=== PATIENT | male | born 1960 | race African-American/Black ===

== ENCOUNTER 2016-05-23 19:33 | Inpatient (IN) | payer OTHER ==
[~2016-05-23] VITALS: Ht 185.4 cm; Wt 66.0 kg
[2016-05-23 19:35] VITALS: BP 113/73; PULSE 95; RESP 15; TEMP 99.1; O2SAT 97
--- NOTE | 2016-05-23 19:58 | PD ---
Physical Exam Date Seen by Provider: May 23, 2016 Time Seen by Provider: 19:55 Narrative 55 year old male presents to the emergency department for evaluation of dry cough, left sided pain, subjective fevers for 1 week. He reports shortness of breath and left sided pain worse when laying down. Patient awaiting bed placement. Data Data Last Documented VS Vital Signs Date Time Temp Pulse Resp B/P Pulse Ox O2 Delivery O2 Flow Rate FiO2 05/23/16 19:35 99.1 95 15 113/73 97 Room Air [facility] Supervised Visit with PERLA: Elicia Rhodes May 23, 2016 19:58
--- NOTE | 2016-05-23 21:09 | PD ---
HPI Chief Complaint: Respiratory Symptoms Time Seen by Provider: 20:57 Travel History International Travel<30 days: No Contact w/Intl Traveler<30days: No Traveled to known affect area: No History of Present Illness HPI 55-year-old male here for evaluation of cough, left neck pain, left chest pain, and shortness of breath. Symptoms going on for last week. Patient works in [employer]. He denies trauma. Cough is productive of greenish sputum. No hemoptysis. He has had subjective intermittent fevers and chills. Symptoms seem to be worse at night. No paresthesias or motor deficits. No known history of cardiac disease. No history of DVT or PE. PFSH Social History Tobacco Use: Yes Allergies-Medications (Allergen,Severity, Reaction): Coded Allergies: No Known Allergies (Unverified , 05/23/16) Reported Meds & Prescriptions Reported Meds & Active Scripts Active No Active Prescriptions or Reported Medications Review of Systems Except as stated in HPI: all other systems reviewed are Neg Physical Exam Narrative GENERAL: Well-developed, well-nourished, comfortable, no acute distress. SKIN: Focused skin assessment warm/dry. HEAD: Atraumatic. Normocephalic. EYES: Pupils equal and round. No scleral icterus. No injection or drainage. ENT: Mucous membranes pink and moist. NECK: Trachea midline. No JVD. Left lateral neck tenderness without mass. No midline vertebral step-off or tenderness. CARDIOVASCULAR: Regular rate and rhythm. Distal pulses brisk and equal bilaterally. RESPIRATORY: No accessory muscle use. Clear to auscultation. Breath sounds equal bilaterally. GASTROINTESTINAL: Abdomen soft, non-tender, nondistended. MUSCULOSKELETAL: No obvious deformities. No clubbing. No cyanosis. No edema. Left anterior and lateral chest wall tenderness without step-off, without crepitus, without paradoxical chest wall movement. Normal range of motion in all joints and extremities. NEUROLOGICAL: Awake and alert. No obvious cranial nerve deficits. Motor grossly within normal limits. Normal speech. PSYCHIATRIC: Appropriate mood and affect; insight and judgment normal. Data Data Last Documented VS Vital Signs Date Time Temp Pulse Resp B/P Pulse Ox O2 Delivery O2 Flow Rate FiO2 05/23/16 21:58 89 18 119/71 95 Room Air 05/23/16 19:35 99.1 Orders Complete Blood Count With Diff (05/23/16 21:01) Comprehensive Metabolic Panel (05/23/16 21:01) Act Partial Throm Time (Ptt) (05/23/16 21:) Prothrombin Time / Inr (Pt) (05/23/16 21:) Ckmb (Isoenzyme) Profile (05/23/16 21:) Troponin I (05/23/16 21:01) Iv Access Insert/Monitor (05/23/16 21:) Electrocardiogram (05/23/16 21:) Ecg Monitoring (05/23/16 21:) Oximetry (05/23/16 21:) Oxygen Administration (05/23/16 21:) Chest, Single Ap (05/23/16 21:) Ct Pulmonary Angiogram (05/23/16 21:) Sodium Chloride 0.9% Flush (Ns Flush) (05/23/16 21:15) Methylprednisolone So Succ Inj (Solumedr (05/23/16 21:15) Albuterol-Ipratropium Neb (Duoneb Neb) (05/23/16 21:15) Ct Cerv Spine W/O Contrast (05/23/16 ) CKMB (05/23/16 21:20) CKMB% (05/23/16 21:20) Iohexol 350 Inj (Omnipaque 350 Inj) (05/23/16 22:41) Cefepime Inj (Maxipime Inj) (05/23/16 23:30) Azithromycin Inj (Zithromax Inj) (05/23/16 23:30) Enoxaparin Inj (Lovenox Inj) (05/23/16 23:30) Blood Culture (05/23/16 23:23) Admit Order (Ed Use Only) (05/23/16 23:37) Ceftriaxone Inj (Rocephin Inj) (05/24/16 23:00) Labs Laboratory Tests Test 05/23/16 21:20 White Blood Count 9.9 TH/MM3 Red Blood Count 4.34 MIL/MM3 Hemoglobin 11.9 GM/DL Hematocrit 36.6 % Mean Corpuscular Volume 84.2 FL Mean Corpuscular Hemoglobin 27.5 PG Mean Corpuscular Hemoglobin 32.7 % Concent Red Cell Distribution Width 12.7 % Platelet Count 144 TH/MM3 Mean Platelet Volume 10.6 FL Neutrophils (%) (Auto) 66.6 % Lymphocytes (%) (Auto) 17.1 % Monocytes (%) (Auto) 15.9 % Eosinophils (%) (Auto) 0.2 % Basophils (%) (Auto) 0.2 % Neutrophils # (Auto) 6.6 TH/MM3 Lymphocytes # (Auto) 1.7 TH/MM3 Monocytes # (Auto) 1.6 TH/MM3 Eosinophils # (Auto) 0.0 TH/MM3 Basophils # (Auto) 0.0 TH/MM3 CBC Comment DIFF FINAL Differential Comment Prothrombin Time 10.7 SEC Prothromb Time International 1.0 RATIO Ratio Activated Partial 38.4 SEC Thromboplast Time Sodium Level 137 MEQ/L Potassium Level 4.0 MEQ/L Chloride Level 99 MEQ/L Carbon Dioxide Level 29.3 MEQ/L Anion Gap 9 MEQ/L Blood Urea Nitrogen 11 MG/DL Creatinine 1.01 MG/DL Estimat Glomerular Filtration 94 ML/MIN Rate Random Glucose 81 MG/DL Calcium Level 8.5 MG/DL Total Bilirubin 1.1 MG/DL Aspartate Amino Transf 16 U/L (AST/SGOT) Alanine Aminotransferase 16 U/L (ALT/SGPT) Alkaline Phosphatase 64 U/L Total Creatine Kinase 124 U/L Creatine Kinase MB LESS THAN 0.5 NG/ML Troponin I LESS THAN 0.02 NG/ML Total Protein 7.4 GM/DL Albumin 2.8 GM/DL MDM Medical Decision Making Medical Screen Exam Complete: Yes Emergency Medical Condition: Yes Interpretation(s) EKG: Sinus, rate 76, normal axis, normal intervals, no acute ischemic abnormality. Differential Diagnosis ACS, pneumothorax, pericarditis, PE, pneumonia, musculoskeletal pain, bronchitis , torticollis, cervical abnormality Narrative Course Initial vital signs show heart rate 95, blood pressure 113/73, pulse ox 97% on room air, oral temp of 99.1F. CBC shows WBC 9.9, hemoglobin 11.9, hematocrit 36.6, platelets 144, CMP is unremarkable. Cardiac enzymes are negative. Chest x-ray: CONCLUSION: Increased density at the bases bilaterally representing either atelectasis or consolidation. CT cervical spine: CONCLUSION: Small area of fragmentation at the posterior right C7 spinous process which is likely chronic given it appears well-corticated. No acute bony injury is seen. CT pulmonary angiogram: LUNGS: There is patchy consolidation throughout the lower lobes bilaterally and to a lesser degree the lateral right upper lobe, the posterior lateral right middle lobe and the posterior left lingula. PLEURAE: There is no pleural thickening or pleural effusion. MEDIASTINUM: There are mildly prominent lymph nodes in the AP window region, subcarinal region, and hilar regions. There is calcification at the right hilum. MUSCULOSKELETAL: Within normal limits for patient age. MISCELLANEOUS: The visualized upper abdominal organs demonstrate no acute abnormality. CONCLUSION: 1. Possible small distal emboli seen in the pulmonary artery supplying the lower lobes bilaterally. 2. Priors of consolidation throughout the lungs being most prominent in the lower lobes. Diffuse processes such as infection need to be considered. Some degree of infarction cannot be excluded. Patient was made aware of all findings. Blood cultures obtained. He was started on antibiotics to cover for pneumonia. He was also started on Lovenox. He'll be admitted for further treatment and evaluation of pulmonary embolism, pneumonia, possible pulmonary infarction. Case discussed with hospitalist Dr. Beebe who will admit the patient to her service. Diagnosis Primary Impression: Pulmonary embolism Qualified Code: I26.99 - Other pulmonary embolism without acute cor pulmonale , unspecified chronicity Additional Impression: Pneumonia Qualified Code: J18.9 - Pneumonia of both lower lobes due to infectious organism Admitting Information Admitting Physician Requests: Admit Scripts No Active Prescriptions or Reported Meds Obed Ch MD May 23, 2016 21:09
[2016-05-23] MEDS ORDERED: methylPREDNISolone SOD SUCC 125 MG/2 ML VIAL IVP ONE (21:15)
[2016-05-23] MEDS ORDERED: SODIUM CHLORIDE 0.9% FLUSH 10 ML FLUSH IVF PRN (21:15)
[2016-05-23] MEDS: RESP: ALBUTEROL 2.5 MG/IPRATROPIUM 0.5 MG NEB (SCH) INH ×2 (21:24→21:25)
[2016-05-23 21:51] LABS: AUTOMATED NEUTROPHIL # 6.6 TH/MM3 (1.8-7.7); BASOPHIL % 0.2 % (0.0-2.0); EOSINOPHIL % 0.2 % (0.0-4.0); HEMATOCRIT 36.6 % (39.0-51.0); HEMO FLAGS DIFF FINAL; LYMPH % 17.1 % (9.0-44.0); LYMPHOCYTE # 1.7 TH/MM3 (1.0-4.8); MEAN CELL VOLUME 84.2 FL (80.0-100.0); MEAN CORPUSCULAR HEMOGLOBIN 27.5 PG (27.0-34.0); MEAN CORPUSCULAR HGB CONC 32.7 % (32.0-36.0); MONO % 15.9 % (0.0-8.0); NEUT % 66.6 % (16.0-70.0); PLATELET COUNT 144 TH/MM3 (150-450); RED BLOOD COUNT 4.34 MIL/MM3 (4.50-5.90); RED CELL DISTRIBUTION WIDTH 12.7 % (11.6-17.2); WHITE BLOOD COUNT 9.9 TH/MM3 (4.0-11.0)
[2016-05-23 21:58] VITALS: BP 119/71; PULSE 89; RESP 18; O2SAT 95
[2016-05-23 22:05] LABS: APTT (PATIENT) 38.4 SEC (24.3-30.1); PROTHROMBIN TIME - PATIENT 10.7 SEC (9.8-11.6)
[2016-05-23 22:08] LABS: ANION GAP 9 MEQ/L (5-15); AST (GOT) 16 U/L (15-37); BICARBONATE 29.3 MEQ/L (21.0-32.0); BLOOD UREA NITROGEN 11 MG/DL (7-18); CHLORIDE 99 MEQ/L (98-107); GLOMERULAR FILTRATION RATE 94 ML/MIN (>89); SODIUM (NA) 137 MEQ/L (136-145)
[2016-05-23 22:13] LABS: ALKALINE PHOSPHATASE 64 U/L (45-117); ALT (GPT) 16 U/L (12-78); CREATINE KINASE 124 U/L (39-308); TOTAL BILIRUBIN ADULT 1.1 MG/DL (0.2-1.0)
--- NOTE | 2016-05-23 22:18 | RADRPT ---
EXAM DATE/TIME: 05/23/2016 21:01 [facility] COMPARISON: No previous studies available for comparison. INDICATIONS : Chest pain for 1 day. MEDICAL HISTORY : None. SURGICAL HISTORY : None. ENCOUNTER: Initial ACUITY: 2 days PAIN SCORE: 8/10 LOCATION: Left upper chest FINDINGS: The heart size is normal. There is increased density identified at the lung bases bilaterally. The m id and upper lungs are relatively clear. A significant effusion is not clearly seen. The bony struc tures are grossly intact. CONCLUSION: Increased density at the bases bilaterally representing either atelectasis or consoli dation. Lucian Naidu MD on May 23, 2016 at 22:05 Board Certified Radiologist. This report was verified electronically.
[2016-05-23 22:25] LABS: CKMB LESS THAN 0.5 NG/ML (0.5-3.6)
[2016-05-23] MEDS ORDERED: IOHEXOL 350 MG/ML 10 ML VIAL (for RAD DIAG) IV ONE (22:41)
--- NOTE | 2016-05-23 23:05 | RADRPT ---
EXAM DATE/TIME: 05/23/2016 22:26 [facility] COMPARISON: No previous studies available for comparison. INDICATIONS : Left neck pain. RADIATION DOSE: 21.56 CTDIvol (mGy) MEDICAL HISTORY : None SURGICAL HISTORY : None. ENCOUNTER: Initial ACUITY: 1 day PAIN SCALE: 6/10 LOCATION: Left neck TECHNIQUE: Volumetric scanning of the cervical spine was performed. Multiplanar reconstructions in the sagittal, coronal and oblique axial planes were performed. Using automated exposure control and adjustment o f the mA and/or kV according to patient size, radiation dose was kept as low as reasonably achievable to obtain optimal diagnostic quality images. FINDINGS: VERTEBRAE: Normal vertebral body height. There is minimal fragmentation of the posterior right C7 spinous proces s. The bony fragment appears well-corticated suggesting this is likely chronic. ALIGNMENT: No evidence of subluxation. C2-C3: The bony spinal canal is normal in size. No evidence of disc bulge or herniation. The neural forami na are bilaterally patent. C3-C4: The bony spinal canal is normal in size. No evidence of disc bulge or herniation. The neural forami na are bilaterally patent. C4-C5: The bony spinal canal is normal in size. No evidence of disc bulge or herniation. The neural forami na are bilaterally patent. C5-C6: The bony spinal canal is normal in size. No evidence of disc bulge or herniation. The neural forami na are bilaterally patent. C6-C7: The bony spinal canal is normal in size. No evidence of disc bulge or herniation. The neural forami na are bilaterally patent. C7-T1: The bony spinal canal is normal in size. No evidence of disc bulge or herniation. The neural forami na are bilaterally patent. CONCLUSION: Small area of fragmentation at the posterior right C7 spinous process which is likely chronic given i t appears well-corticated. No acute bony injury is seen. Lucian Naidu MD on May 23, 2016 at 23:01 Board Certified Radiologist. This report was verified electronically.
--- NOTE | 2016-05-23 23:19 | RADRPT ---
EXAM DATE/TIME: 05/23/2016 22:31 [facility] COMPARISON: No previous studies available for comparison. INDICATIONS : Left chest pain. IV CONTRAST: 70 cc Omnipaque 350 (iohexol) IV RADIATION DOSE: 8.14 CTDIvol (mGy) MEDICAL HISTORY : None SURGICAL HISTORY : None. ENCOUNTER: Initial ACUITY: 1 day PAIN SCALE: 7/10 LOCATION: Left chest TECHNIQUE: Volumetric scanning of the chest was performed using a pulmonary embolism protocol MIP images were re constructed. Using automated exposure control and adjustment of the mA and/or kV according to patien t size, radiation dose was kept as low as reasonably achievable to obtain optimal diagnostic quality images. FINDINGS: PULMONARY ARTERIES: No filling defects are seen in the central pulmonary arteries. There are a few small areas of low den sity seen in the pulmonary artery supplying the lower lobe being more on the right than the left. Sma ll distal pulmonary emboli need to be considered. LUNGS: There is patchy consolidation throughout the lower lobes bilaterally and to a lesser degree the later al right upper lobe, the posterior lateral right middle lobe and the posterior left lingula. PLEURAE: There is no pleural thickening or pleural effusion. MEDIASTINUM: There are mildly prominent lymph nodes in the AP window region, subcarinal region, and hilar regions. There is calcification at the right hilum. MUSCULOSKELETAL: Within normal limits for patient age. MISCELLANEOUS: The visualized upper abdominal organs demonstrate no acute abnormality. CONCLUSION: 1. Possible small distal emboli seen in the pulmonary artery supplying the lower lobes bilaterally. 2. Priors of consolidation throughout the lungs being most prominent in the lower lobes. Diffuse proc esses such as infection need to be considered. Some degree of infarction cannot be excluded. Lucian Naidu MD on May 23, 2016 at 23:04 Board Certified Radiologist. This report was verified electronically.
[2016-05-23] MEDS ORDERED: AZITHROMYCIN INJ 500 MG in SODIUM CHLOR 0.9% 250 ML INJ 250 ML IV ONE (23:30)
[2016-05-23] MEDS ORDERED: ENOXAPARIN SODIUM 80 MG/0.8 ML SYRINGE SQ ONE (23:30)
[2016-05-23] MEDS ORDERED: CEFEPIME INJ 1,000 MG in SODIUM CHLORIDE 0.9% INJ 100 ML IV ONE (23:30)
--- NOTE | 2016-05-23 23:41 | HHI.HP ---
[facility] Primary Care Physician No Primary Care Physician Admission Diagnosis pulmonary embolism, bilateral pneumonia versus pulmonary infarcts Diagnoses: (1) PE (pulmonary thromboembolism) Diagnosis: Principal (2) PNA (pneumonia) Diagnosis: Principal (3) Thrombocytopenia Diagnosis: Principal (4) Tobacco abuse Diagnosis: Principal Travel History International Travel<30 Days: No Contact w/Intl Traveler <30 Da: No Traveled to Known Affected Are: No History of Present Illness This is a 55-year-old male with no significant PMH who presented to the ER with complaints of cough, SOB and neck pain x1 wk. States symptoms have gotten progressively worse, now reports productive cough w/ green colored sputum and febrile episodes. On arrival, BP 113/73, HR 95, O2 sat 97% on RA, Temp 99.1. WBC 9.9. Platelets 144, no previous labs for comparison. Chemistry essentially unremarkable. Troponin 0.02. INR 1.0. CXR with increased density at bases bilaterally. CT C-spine no acute findings. CTA Pulm with possible small distal emboli and pulmonary artery bilateral lobes, consolidation bilateral bases. S/p Cefepime/Zithro and Lovenox in ER. No reported h/o PE in the past, no recent travel or surgical intervention. Review of Systems Except as stated in HPI: all other systems reviewed are Neg ROS: 14 point review of systems otherwise negative. Past Family Social History Past Medical History PMH: None Past Surgical History PAST SURGICAL HISTORY: None Allergies: Coded Allergies: No Known Allergies (Unverified , 05/23/16) Family History PAST FAMILY HISTORY: Reviewed. No h/o DM or CAD Social History PAST SOCIAL HISTORY: Negative for alcohol or drugs. Smokes 1ppd. Physical Exam Vital Signs Vital Signs Date Time Temp Pulse Resp B/P Pulse Ox O2 Delivery O2 Flow Rate FiO2 05/23/16 21:58 89 18 119/71 95 Room Air 05/23/16 21:25 98 Aerosol Mask 05/23/16 19:35 99.1 95 15 113/73 97 Room Air Physical Exam PE: GENERAL: Middle-aged male in no acute distress. HEENT: PERRLA, EOMI. No scleral icterus or conjunctival pallor. No lid lag or facial droop. CARDIOVASCULAR: Regular rate and rhythm. No obvious murmurs to auscultation. No chest tenderness to palpation. RESPIRATORY: No obvious rhonchi, occasional wheezing. Clear to auscultation. Breath sounds equal bilaterally. GASTROINTESTINAL: Abdomen soft, non-tender, nondistended. BS normal. MUSCULOSKELETAL: Extremities without clubbing, cyanosis, or edema. No obvious deformities. NEUROLOGICAL: Awake, alert and oriented x4. No focal neurologic deficits. Moving both upper and lower extremities spontaneously. Laboratory Laboratory Tests Test 05/23/16 21:20 White Blood Count 9.9 Red Blood Count 4.34 Hemoglobin 11.9 Hematocrit 36.6 Mean Corpuscular Volume 84.2 Mean Corpuscular Hemoglobin 27.5 Mean Corpuscular Hemoglobin 32.7 Concent Red Cell Distribution Width 12.7 Platelet Count 144 Mean Platelet Volume 10.6 Neutrophils (%) (Auto) 66.6 Lymphocytes (%) (Auto) 17.1 Monocytes (%) (Auto) 15.9 Eosinophils (%) (Auto) 0.2 Basophils (%) (Auto) 0.2 Neutrophils # (Auto) 6.6 Lymphocytes # (Auto) 1.7 Monocytes # (Auto) 1.6 Eosinophils # (Auto) 0.0 Basophils # (Auto) 0.0 CBC Comment DIFF FINAL Differential Comment Prothrombin Time 10.7 Prothromb Time International 1.0 Ratio Activated Partial 38.4 Thromboplast Time Sodium Level 137 Potassium Level 4.0 Chloride Level 99 Carbon Dioxide Level 29.3 Anion Gap 9 Blood Urea Nitrogen 11 Creatinine 1.01 Estimat Glomerular Filtration 94 Rate Random Glucose 81 Calcium Level 8.5 Total Bilirubin 1.1 Aspartate Amino Transf 16 (AST/SGOT) Alanine Aminotransferase 16 (ALT/SGPT) Alkaline Phosphatase 64 Total Creatine Kinase 124 Creatine Kinase MB LESS THAN 0.5 Troponin I LESS THAN 0.02 Total Protein 7.4 Albumin 2.8 Result Diagram: 05/23/16211905/23/162119 Assessment and Plan Problem List: (1) PE (pulmonary thromboembolism) ICD Code: I26.99 Status: Acute (2) PNA (pneumonia) ICD Code: J18.9 Status: Acute (3) Thrombocytopenia ICD Code: D69.6 Status: Acute (4) Tobacco abuse ICD Code: Z72.0 Status: Acute Assessment and Plan A/P: 1. PE: worsening SOB/cough x1 wk, CTA w/ possible small distal emboli and pulmonary artery supplying lower lobes, images reviewed by me. No h/o PE, no recent travel/no surgical intervention, s/p Lovenox in ER, will continue w/ Lovenox q12h. Symbicort/DuoNeb for possible bronchospasm from PE. 2. PNA: CXR/CTA Pulm w/ bilateral basilar consolidation, images reviewed by me , +productive cough, continue w/ IV Abx, DuoNeb prn as needed. Mucinex 3. Thrombocytopenia: Platelets 144, no previous labs for comparison. No active bleeding, monitor closely in light of starting Lovenox. Repeat labs in am. 4. Tobacco Abuse: Pt counselled. Ativan/NicoDerm prn if needed. 5. DVT Prophylaxis: SCD/Teds. 6. Social work for d/c planning as needed. 7. Case discussed w/ ER physician at length. Physician Certification 2 Midnight Certification Type: Admission for Inpatient Services Order for Inpatient Services The services are ordered in accordance with Medicare regulations or non- Medicare payer requirements, as applicable. In the case of services not specified as inpatient-only, they are appropriately provided as inpatient services in accordance with the 2-midnight benchmark. Estimated LOS (days): 2 days is the estimated time the patient will need to remain in the hospital, assuming treatment plan goals are met and no additional complications. Post-Hospital Plan: Not yet determined Linda Beebe MD May 23, 2016 23:40
[2016-05-23] MEDS ORDERED: SODIUM CHLORIDE 0.9% FLUSH 10 ML FLUSH IV FLUSH PRN (23:45)
[2016-05-23] MEDS ORDERED: ONDANSETRON HCL 4 MG/2 ML VIAL IVP PRN (23:45)
[2016-05-23] MEDS ORDERED: RESP: ALBUTEROL 2.5 MG/IPRATROPIUM 0.5 MG NEB (PRN) NEB (23:45)
[2016-05-23] MEDS ORDERED: ACETAMINOPHEN 325 MG TAB PO PRN (23:45)
[2016-05-23] MEDS ORDERED: BISACODYL 10 MG SUPP RECTAL PRN (23:45)
[2016-05-23] MEDS ORDERED: ACETAMINOPHEN/HYDROcodone 325 MG/5 MG TAB PO PRN (23:45)
[2016-05-23] MEDS ORDERED: MORPHINE SULFATE 4 MG/ML INJ IV PRN (23:45)
[2016-05-24] VITALS (9 sets, daily range): BP systolic 112–133; BP diastolic 55–77; PULSE 55–86; RESP 18–20; TEMP 97.5–98.7; O2SAT 96–98
[2016-05-24 08:17] LABS: AUTOMATED NEUTROPHIL # 5.2 TH/MM3 (1.8-7.7); BASOPHIL % 0.2 % (0.0-2.0); HEMATOCRIT 35.4 % (39.0-51.0); LYMPHOCYTE # 0.5 TH/MM3 (1.0-4.8); MEAN CELL VOLUME 84.3 FL (80.0-100.0); MEAN CORPUSCULAR HEMOGLOBIN 27.9 PG (27.0-34.0); MEAN CORPUSCULAR HGB CONC 33.1 % (32.0-36.0); MONO % 5.4 % (0.0-8.0); NEUT % 85.4 % (16.0-70.0); PLATELET COUNT 156 TH/MM3 (150-450); RED BLOOD COUNT 4.19 MIL/MM3 (4.50-5.90); RED CELL DISTRIBUTION WIDTH 12.9 % (11.6-17.2); WHITE BLOOD COUNT 6.1 TH/MM3 (4.0-11.0)
[2016-05-24 08:19] LABS: HEMO FLAGS AUTO DIFF
[2016-05-24 08:24] LABS: ALT (GPT) 15 U/L (12-78); ANION GAP 8 MEQ/L (5-15); AST (GOT) 15 U/L (15-37); BICARBONATE 25.5 MEQ/L (21.0-32.0); BLOOD UREA NITROGEN 8 MG/DL (7-18); CHLORIDE 104 MEQ/L (98-107); GLOMERULAR FILTRATION RATE 99 ML/MIN (>89); POTASSIUM 4.3 MEQ/L (3.5-5.1); SODIUM (NA) 137 MEQ/L (136-145)
[2016-05-24 08:26] LABS: ALKALINE PHOSPHATASE 61 U/L (45-117); TOTAL BILIRUBIN ADULT 0.8 MG/DL (0.2-1.0)
[2016-05-24] MEDS: BUDESONIDE-FORMOTEROL 160/4.5 MCG INHALER INH SCH (09:00)
--- NOTE | 2016-05-24 09:35 | HHI.PR ---
Subjective Remarks Patient having improved sob at baseline but reports significant cough with deep inspiration. No fever, chills, cp. Objective Vitals Vital Signs Date Time Temp Pulse Resp B/P Pulse Ox O2 Delivery O2 Flow Rate FiO2 05/24/16 06:11 Room Air 05/24/16 05:09 97.7 69 18 117/55 98 05/24/16 02:54 98.2 80 18 120/71 98 05/24/16 02:05 78 05/24/16 01:02 97 05/24/16 00:34 86 18 114/77 97 Room Air 05/23/16 21:58 89 18 119/71 95 Room Air 05/23/16 21:25 98 Aerosol Mask 05/23/16 19:35 99.1 95 15 113/73 97 Room Air Result Diagram: 05/24/1671805/24/16718 Objective Remarks GENERAL: male in no acute distress. HEENT: PERRLA, EOMI. No scleral icterus or conjunctival pallor. CARDIOVASCULAR: Regular rate and rhythm. No obvious murmurs to auscultation. RESPIRATORY: No obvious rhonchi, occasional wheezing. Clear to auscultation. Breath sounds equal bilaterally. GASTROINTESTINAL: Abdomen soft, non-tender, nondistended. BS normal. MUSCULOSKELETAL: Extremities without clubbing, cyanosis, or edema. No obvious deformities. NEUROLOGICAL: Awake, alert and oriented x4. No focal neurologic deficits. Moving both upper and lower extremities spontaneously. Urinary Catheter: No Vascular Central Line Catheter: No A/P Problem List: (1) PE (pulmonary thromboembolism) ICD Code: I26.99 Status: Acute (2) PNA (pneumonia) ICD Code: J18.9 Status: Acute (3) Thrombocytopenia ICD Code: D69.6 Status: Acute (4) Tobacco abuse ICD Code: Z72.0 Status: Acute Assessment and Plan Physical to the ED emergency department for evaluation of SOB x 1 week. PE: CTA w/ possible small distal emboli and pulmonary artery supplying lower lobes. No h/o DVT, PE, recent travel, or other immobilization. No known hx of cancer. No sign of distal DVT on exam. sPESI: low risk PE in patient with initial unprovoked PE. Warrants 3 months anticoagulation therapy. VSS. -Defer full workup given 1st PE, unprovoked -Echocardiogram today -Lovenox q12h. -Symbicort/DuoNeb for possible bronchospasm from PE -Discussed dc on Xarelto with CM, should be covered PNA: CXR/CTA Pulm w/ bilateral basilar consolidation. Patient continues to have productive cough - continue cefepime every 24 h Continue azithromycin every 24 h - Mucinex Thrombocytopenia: Platelets 144 on admission, resolved. Tobacco Abuse: Pt counselled. DVT Prophylaxis: SCD/Teds. CM for d/c planning to establish with PCP and Xarelto coverage Discharge Planning home after complete echocardiogram with results and VSS. likely to be delayed until tomorrow Lisa Vick MD May 24, 2016 09:35
[2016-05-24 10:14] LABS: PLATELET ESTIMATE SMEAR NORMAL (NORMAL); PLATELET MORPHOLOGY ENLARGED (NORMAL); SCAN/DIFF AUTO DIFF CONFIRMED
[2016-05-24] MEDS ORDERED: ENOXAPARIN SODIUM 80 MG/0.8 ML SYRINGE SQ SCH (12:00)
--- NOTE | 2016-05-24 14:25 | EKG ---
Date Performed: 05/23/2016 Time Performed: 22:05:13 PTAGE: 55 years EKG: Sinus rhythm NORMAL ECG PREVIOUS TRACING : 03/14/2014 08.49 DOCTOR: Tavon An Interpretating Date/Time 05/24/2016 14:23:39
--- NOTE | 2016-05-24 15:36 | EC ---
Study Study Date:05/24/2016 STUDY CONCLUSIONS SUMMARY - Left ventricle: The cavity size was normal. Wall thickness was normal. Systolic function was normal. The estimated ejection fraction was in the range of 55% to 60%. Wall motion was normal; there were no regional wall motion abnormalities. - Aortic valve: Valve area: 3.19cm^2 (Vmax). - Mitral valve: Mild regurgitation. - Tricuspid valve: Mild regurgitation. - Pulmonary arteries: PA peak pressure: 32mm Hg (S). If LV function is below 40, please consider prescribing an ACEI or ARB or document rationale for non-use. PROCEDURE DATA STUDY STATUS: Elective. Procedure: Transthoracic echocardiography. Image quality was good. Scanning was performed from the parasternal, apical, and subcostal acoustic windows. Study completion: The patient tolerated the procedure well. Transthoracic echocardiography. M-mode, complete 2D, complete spectral Doppler, and color Doppler. Height: Height: 73in. Weight: Weight: 143.7lb. Body mass index: BMI: 19kg/m^2. Body surface area: BSA: 1.87m^2. Patient status: Inpatient. CARDIAC ANATOMY LEFT VENTRICLE: The cavity size was normal. Wall thickness was normal. Systolic function was normal. The estimated ejection fraction was in the range of 55% to 60%. Wall motion was normal; there were no regional wall motion abnormalities. AORTIC VALVE: Trileaflet; normal thickness leaflets. Doppler: Transvalvular velocity was within the normal range. There was no stenosis. No regurgitation. Valve area: 3.19cm^2 (Vmax). Indexed valve area: 1.71cm^2/m^2 (Vmax). AORTA: Aortic root: The aortic root was normal in size. MITRAL VALVE: Mildly thickened leaflets, . Doppler: Transvalvular velocity was within the normal range. There was no evidence for stenosis. Mild regurgitation. Peak gradient: 3mm Hg (D). LEFT ATRIUM: The atrium was normal in size. RIGHT VENTRICLE: The cavity size was normal. Wall thickness was normal. PULMONIC VALVE: Doppler: Transvalvular velocity was within the normal range. There was no evidence for stenosis. No regurgitation. TRICUSPID VALVE: Structurally normal valve. Doppler: Transvalvular velocity was within the normal range. Mild regurgitation. PULMONARY ARTERY: The main pulmonary artery was normal-sized. Systolic pressure was within the normal range. RIGHT ATRIUM: The atrium was normal in size. PERICARDIUM: There was no pericardial effusion. SYSTEMIC VEINS: Inferior vena cava: The vessel was normal in size. Patient weight: 143.7lb _Ejection fraction:_ 65-75% _Fractional shortening:_ 32% up to 5Kg 5-11.5Kg 11.6-22.9Kg 23-45Kg 45-57Kg Aortic Root 7-13 <17 13-22 17-27 17-27 LA diam 6-13 <23 24-38 33-47 37-40 RVID 10-17 7-15 7-15 7-18 8-17 LVIDd 12-22 <32 24-38 33-47 37-40 LVPW 2-4 3-6 5-7 6-8 7-8 IVS 2-4 3-6 5-7 6-8 7-8 BASIC MEASUREMENTS ADULT NORMAL Left ventricle LV internal dimension, ED, chordal *56.2 mm 43-52 level, PLAX LV internal dimension, ES, chordal *42 mm 23-38 level, PLAX Fractional shortening, chordal level, *25 % >29 PLAX LV posterior wall thickness, ED 9.26 mm IVS/LVPW ratio, ED 0.95 <1.3 Ventricular septum Septal thickness, ED 8.81 mm Aortic valve Leaflet separation 22 mm 15-26 BASIC MEASUREMENTS ADULT NORMAL Aortic valve Leaflet separation 22 mm 15-26 Aorta Root diameter, ED 29 mm 20-37 Left atrium Anterior-posterior dimension, ES 33 mm 19-40 Anterior-posterior dimension index, ES 1.76 cm/m^2 <2.2 LA/aortic root ratio 1.14 DOPPLER MEASUREMENTS ADULT NORMAL Main pulmonary artery Pressure, S *32 mm Hg =30 Aortic valve Peak velocity, S 117 cm/s Valve area, Vmax 3.19 cm^2 Valve area index, Vmax 1.71 cm^2/m^2 Mitral valve Peak E-wave velocity 81.4 cm/s Peak A-wave velocity 42.9 cm/s Deceleration time *289 ms 150-230 Peak gradient, D 3 mm Hg Peak E/A ratio 1.9 Maximal regurgitant velocity 434 cm/s Tricuspid valve Regurgitant peak velocity 210 cm/s Peak RV-RA gradient, S 18 mm Hg Maximal regurgitant velocity 210 cm/s Systemic veins Estimated CVP 10 mm Hg Right ventricle RV pressure, S *36 mm Hg <30 Pulmonic valve Peak velocity, S 100 cm/s LEGEND: Mean values are shown as u=mean value. Asterisk (*) rosa values outside specified normal range. Prepared and signed by Matt Land [id number]
[2016-05-24] MEDS: SODIUM CHLORIDE 0.9% FLUSH 10 ML FLUSH IV FLUSH SCH ×2 (21:00→21:53)
[2016-05-24] MEDS: RIVAROXABAN 15 MG TAB PO SCH (21:53)
[2016-05-24] MEDS ORDERED: AZITHROMYCIN INJ 500 MG in SODIUM CHLOR 0.9% 250 ML INJ 250 ML IV SCH (23:00)
[2016-05-24] MEDS ORDERED: cefTRIAXone 1,000 MG/NS 100 ML IV SCH ×2 (23:00)
[2016-05-25] VITALS: BP 109/64; PULSE 76; RESP 18; TEMP 97.8; O2SAT 98
[2016-05-25 04:00] VITALS: BP 119/76; PULSE 55; RESP 16; TEMP 97.9; O2SAT 98
[2016-05-25 08:00] VITALS: BP 123/68; PULSE 61; RESP 20; TEMP 98.1; O2SAT 98
[2016-05-25 09:00] VITALS: PULSE 55
[2016-05-25] MEDS: BUDESONIDE-FORMOTEROL 160/4.5 MCG INHALER INH SCH (09:00)
[2016-05-25] MEDS: SODIUM CHLORIDE 0.9% FLUSH 10 ML FLUSH IV FLUSH SCH (09:00)
[2016-05-25] MEDS: RIVAROXABAN 15 MG TAB PO SCH (09:09)
[2016-05-25 12:00] VITALS: BP 124/75; PULSE 75; RESP 20; TEMP 97.5; O2SAT 96
[2016-05-25] MEDS ORDERED: XARE15TA PO (13:02)
[2016-05-25] MEDS ORDERED: LEVA750T PO (13:02)
--- NOTE | 2016-05-25 13:03 | HHI.DCPOC ---
Discharge Care Plan Goals to Promote Your Health * To prevent worsening of your condition and complications take all medications as prescribed * To maintain your health at the optimal level establish with an follow-up with PCP, Dr. Vitale, within 1 week Directions to Meet Your Goals Take your medications as prescribed Follow your dietary instruction Follow activity as directed Keep your appointments as scheduled Take your immunizations and boosters as scheduled If your symptoms worsen call your PCP, if no PCP go to Urgent Care Center or Emergency Room Smoking is Dangerous to Your Health. Avoid second hand smoke Call the 24-hour hour crisis hotline for domestic abuse at Shellie Suggs MD R3 May 25, 2016 13:03
--- NOTE | 2016-05-25 13:07 | HHI.PR ---
Subjective Remarks No acute events overnight. Afebrile, vital signs stable. Patient complains of chronic cough this morning that is worse when he takes deep inspirations. He states he feels ready to go home. Denies shortness of breath/chest pain. Objective Vitals Vital Signs Date Time Temp Pulse Resp B/P Pulse Ox O2 Delivery O2 Flow Rate FiO2 05/25/16 09:30 Room Air 05/25/16 09:00 55 05/25/16 08:00 98.1 61 20 123/68 98 05/25/16 04:00 97.9 55 16 119/76 98 05/25/16 00:00 97.8 76 18 109/64 98 05/24/16 20:00 66 05/24/16 20:00 98.4 57 18 125/66 98 05/24/16 19:33 Room Air 05/24/16 16:00 98.7 60 20 119/74 97 I/O 05/24/16 05/24/16 05/24/16 05/25/16 05/25/16 05/25/16 07:00 15:00 23:00 07:00 15:00 23:00 Intake Total 480 ml 240 ml 240 ml Balance 480 ml 240 ml 240 ml Intake Oral 480 ml 240 ml 240 ml # Voids 1 2 2 # Bowel Movements 0 1 0 Result Diagram: 05/24/1671805/24/16718 Objective Remarks GENERAL: male in no acute distress. HEENT: PERRLA, EOMI. No scleral icterus or conjunctival pallor. CARDIOVASCULAR: Regular rate and rhythm. No obvious murmurs to auscultation. RESPIRATORY: No obvious rhonchi, no wheezing. Clear to auscultation. Breath sounds equal bilaterally. GASTROINTESTINAL: Abdomen soft, non-tender, nondistended. BS normal. MUSCULOSKELETAL: Extremities without clubbing, cyanosis, or edema. No obvious deformities. NEUROLOGICAL: Awake, alert and oriented x4. No focal neurologic deficits. Moving both upper and lower extremities spontaneously. A/P Problem List: (1) PE (pulmonary thromboembolism) ICD Code: I26.99 Status: Acute (2) PNA (pneumonia) ICD Code: J18.9 Status: Acute (3) Thrombocytopenia ICD Code: D69.6 Status: Acute (4) Tobacco abuse ICD Code: Z72.0 Status: Acute Assessment and Plan Physical to the ED emergency department for evaluation of SOB x 1 week. PE: CTA w/ possible small distal emboli and pulmonary artery supplying lower lobes. No h/o DVT, PE, recent travel, or other immobilization. No known hx of cancer. No sign of distal DVT on exam. sPESI: low risk PE in patient with initial unprovoked PE. Warrants 3 months anticoagulation therapy. VSS. -Defer full workup given 1st PE, unprovoked -Echocardiogram within normal limits -Patient initiated on therapeutic Lovenox, transitioned to Xarelto. He will be discharged on Xarelto which will be covered with his blue card. -Patient counseled as to the importance of following up in community clinic PNA: CXR/CTA Pulm w/ bilateral basilar consolidation. Patient continues to have productive cough -Treated with cefepime and azithromycin and patient -Discharged on 7 days of Levaquin Thrombocytopenia: Platelets 144 on admission, resolved. Tobacco Abuse: Pt counselled. DVT Prophylaxis: SCD/Teds. Discharge Planning To home today Shellie Suggs MD R3 May 25, 2016 13:07
--- NOTE | 2016-05-25 13:11 | HHI.DS ---
Dr. Simons Discharge Summary Admission Date May 23, 2016 at 23:39 Discharge Date: May 25, 2016 Admitting Diagnosis pulmonary embolism, bilateral pneumonia versus pulmonary infarcts (1) PE (pulmonary thromboembolism) ICD Code: I26.99 Diagnosis: Principal (2) PNA (pneumonia) ICD Code: J18.9 Diagnosis: Principal (3) Thrombocytopenia ICD Code: D69.6 Diagnosis: Principal (4) Tobacco abuse ICD Code: Z72.0 Diagnosis: Secondary Procedures None Brief History - From Admission History of present illness: This is a 55-year-old male with no significant PMH who presented to the ER with complaints of cough, SOB and neck pain x1 wk. States symptoms have gotten progressively worse, now reports productive cough w / green colored sputum and febrile episodes. On arrival, BP 113/73, HR 95, O2 sat 97% on RA, Temp 99.1. WBC 9.9. Platelets 144, no previous labs for comparison. Chemistry essentially unremarkable. Troponin 0.02. INR 1.0. CXR with increased density at bases bilaterally. CT C-spine no acute findings. CTA Pulm with possible small distal emboli and pulmonary artery bilateral lobes , consolidation bilateral bases. S/p Cefepime/Zithro and Lovenox in ER. No reported h/o PE in the past, no recent travel or surgical intervention. CBC/BMP: 05/24/16 0719 05/24/16 0719 Significant Findings Laboratory Tests Test 05/23/16 05/24/16 21:20 07:19 Red Blood Count 4.34 MIL/MM3 4.19 MIL/MM3 (4.50-5.90) (4.50-5.90) Hemoglobin 11.9 GM/DL 11.7 GM/DL (13.0-17.0) (13.0-17.0) Hematocrit 36.6 % 35.4 % (39.0-51.0) (39.0-51.0) Platelet Count 144 TH/MM3 (150-450) Monocytes (%) (Auto) 15.9 % (0.0-8.0) Monocytes # (Auto) 1.6 TH/MM3 (0-0.9) Activated Partial 38.4 SEC Thromboplast Time (24.3-30.1) Total Bilirubin 1.1 MG/DL (0.2-1.0) Creatine Kinase MB LESS THAN 0.5 NG/ML (0.5-3.6) Troponin I LESS THAN 0.02 NG/ML (0.02-0.05) Albumin 2.8 GM/DL 2.7 GM/DL (3.4-5.0) (3.4-5.0) Neutrophils (%) (Auto) 85.4 % (16.0-70.0) Lymphocytes # (Auto) 0.5 TH/MM3 (1.0-4.8) Platelet Morphology Comment ENLARGED (NORMAL) Random Glucose 175 MG/DL (74-106) Imaging Last 72 hours Impressions Chest X-Ray 05/23/162100 Signed Impressions: Service Date/Time: Monday, May 23, 2016 21:01 - CONCLUSION: Increased density at the bases bilaterally representing either atelectasis or consolidation. Lucian Naidu MD CT Angiography 05/23/162100 Signed Impressions: Service Date/Time: Monday, May 23, 2016 22:31 - CONCLUSION: 1. Possible small distal emboli seen in the pulmonary artery supplying the lower lobes bilaterally. 2. Priors of consolidation throughout the lungs being most prominent in the lower lobes. Diffuse processes such as infection need to be considered. Some degree of infarction cannot be excluded. Lucian Naidu MD Cervical Spine CT 05/23/16 0000 Signed Impressions: Service Date/Time: Monday, May 23, 2016 22:26 - CONCLUSION: Small area of fragmentation at the posterior right C7 spinous process which is likely chronic given it appears well-corticated. No acute bony injury is seen. Lucian Naidu MD PE at Discharge GENERAL: male in no acute distress. HEENT: PERRLA, EOMI. No scleral icterus or conjunctival pallor. CARDIOVASCULAR: Regular rate and rhythm. No obvious murmurs to auscultation. RESPIRATORY: No obvious rhonchi, no wheezing. Clear to auscultation. Breath sounds equal bilaterally. GASTROINTESTINAL: Abdomen soft, non-tender, nondistended. BS normal. MUSCULOSKELETAL: Extremities without clubbing, cyanosis, or edema. No obvious deformities. NEUROLOGICAL: Awake, alert and oriented x4. No focal neurologic deficits. Moving both upper and lower extremities spontaneously. Hospital Course Patient admitted for treatment of his pulmonary embolism, was started on therapeutic Lovenox. He was then transitioned to Xarelto which he will be discharged on. He was stable without requiring oxygen. Patient also found to have a pneumonia for which she was treated inpatient with cefepime and azithromycin. He was discharged home with 7 days of Levaquin. The patient does not have a primary care provider, or insurance. He was given a blue card to be able to fill his Xarelto and will follow-up in community clinic with Dr. Simons. Pt Condition on Discharge: Good Discharge Disposition: Discharge Home Discharge Time: <= 30 minutes Discharge Instructions DIET: Follow Instructions for: As Tolerated, No Restrictions Activities you can perform: Regular-No Restrictions Follow up Referrals: PCP Follow-up - 1 Week New Medications: Levofloxacin (Levaquin) 750 Mg Tab 750 MG PO DAILY Infection #7 Ref 0 TAB Rivaroxaban (Xarelto) 15 Mg Tab 15 MG PO BID #40 TAB Shellie Suggs MD R3 May 25, 2016 13:11
[2016-06-02] MEDS ORDERED: XARE20TA PO (15:50)
== END 2016-05-25 16:10 | disposition home or self-care (01) | DRG 175 ==
LOC: NEPD 19:33 → NEDA 23:39 → N04B 05-24 02:04
PROVIDERS: ADMIT Family Medicine; ATTEND Family Medicine
DX: I26.99 Other pulmonary embolism without acute cor pulmonale (principal); J18.9 Pneumonia, unspecified organism; D69.6 Thrombocytopenia, unspecified; Z72.0 Tobacco use
CPT/HCPCS: 71010; 71275; 72125; 80053; 82550; 82552; 84484; 85025; 85610; 85730; 87040; 93005; 93306; 94640; 94664; 96374; J0456; J0692; J0696; J1650; J2930; J7050; Q9967